=== PATIENT | female | born 1960 | race Caucasian/White ===

== ENCOUNTER 2022-12-03 07:17 | Day surgery (SDC) | payer OTHER ==
[2022-11-29 16:09] LABS: BASOPHILS # (AUTO) 0.1 X10'3 (0-0.2); BASOPHILS % (AUTO) 0.7 % (0-1); EOSINOPHILS # (AUTO) 0.1 X10'3 (0-0.9); EOSINOPHILS % (AUTO) 0.6 % (0-6); LYMPHOCYTES # (AUTO) 2.5 X10'3 (1.1-4.8); LYMPHOCYTES % (AUTO) 29.6 % (21-51); MEAN CORPUSCULAR HEMOGLOBIN 34.3 PG (27.0-31.0); MEAN CORPUSCULAR HGB CONC 33.7 g/dL (33.0-36.5); MEAN CORPUSCULAR VOLUME 101.6 FL (78-98); MEAN PLATELET VOLUME 7.7 FL (7.4-10.4); MONOCYTES # (AUTO) 0.6 X10'3 (0-0.9); MONOCYTES % (AUTO) 7.4 % (2-12); NEUTROPHILS # (AUTO) 5.3 X10'3 (1.8-7.7); NEUTROPHILS % (AUTO) 61.7 % (42-75); PRE OP HEMATOCRIT 42.7 % (35.0-45.0); PRE OP HEMOGLOBIN 14.4 g/dL (12.0-16.0); PRE OP PLATELET COUNT 305 X10'3 (140-440); RED BLOOD COUNT 4.21 X10'6 (4.20-5.60); RED CELL DISTRIBUTION WIDTH 14.4 % (11.5-14.5)
[2022-11-29 16:19] LABS: ALBUMIN 3.6 G/DL (3.4-5.0); ALBUMIN/GLOBULIN RATIO 0.9 (1.1-1.5); ALKALINE PHOSPHATASE 74 IU/L (46-116); BLOOD UREA NITROGEN 11 MG/DL (7-18); BUN/CREATININE RATIO 13.9 (6.6-38.0); CALCIUM 9.3 MG/DL (8.5-10.1); CHLORIDE 102 MMOL/L (99-107); CREATININE 0.79 MG/DL (0.40-0.90); PRE OP ALT 23 U/L (30-65); PRE OP ANION GAP 6 (8-16); PRE OP AST 21 U/L (10-37); PRE OP BILIRUB, TOTAL 0.3 MG/DL (0.0-1.0); PRE OP GLUCOSE 101 MG/DL (70-104); PRE OP POTASSIUM 4.3 MMOL/L (3.4-5.1); PRE OP SODIUM 136 MMOL/L (135-145); TOTAL CARBON DIOXIDE 28.5 MMOL/L (24-32); TOTAL PROTEIN 7.7 G/DL (6.4-8.2); eGFR 74 ML/MIN
[2022-12-03] VITALS (10 sets, daily range): BP systolic 125–149; BP diastolic 85–100
[~2022-12-03] VITALS: Ht 154.9 cm; Wt 61.7 kg
[~2022-12-03 07:17] MED LIST: AMLO10TA13 PO; ATEN25TA; BUPIVAcaine 0.5% inj/PF 30 ML ONE; DOCUMENT DATE & TIME OF BETA-BLOCKER PO ONE; HYDR-3972 PO; ceFAZolin inj. 2,000 MG in dextrose 5%-water 100 ML IV ONE; famotidine 20mg tablet PO ONE; ringers solution, lacted 1,000 ML IV SCH
[2022-12-03] MEDS ORDERED: LIDOcaine 1% 30ml preserv. free vial ONE ×2 (07:49→10:59)
[2022-12-03] MEDS ORDERED: proCHLORperazine 10 MG/2 ml inj IV PRN ×2 (09:45)
[2022-12-03] MEDS ORDERED: morphine 4 MG/ML inj SYRINge IV PRN ×2 (09:45)
[2022-12-03] MEDS ORDERED: ondansetron/PF 4mg/2ml inj IV PRN ×2 (09:45)
[2022-12-03] MEDS ORDERED: meperidine/PF 25mg/ml syringe IV PRN ×6 (09:45)
[2022-12-03] MEDS ORDERED: morphine 2 MG/ML inj. syringe IV PRN ×2 (09:45)
[2022-12-03] MEDS ORDERED: ringers solution, lacted 1,000 ML IV SCH ×2 (09:45)
[2022-12-03] MEDS ORDERED: fentaNYL/PF 50MCG/1 ML 2ML syringe ONE (10:09)
[2022-12-03] MEDS ORDERED: MIDAZolam 1 MG/ML 5ML VIAL ONE (10:10)
[2022-12-03] MEDS ORDERED: LIDOcaine 2% (20mg/ml) 5ml vial ONE (10:20)
[2022-12-03] MEDS ORDERED: ROPIVAcaine 0.5% (5mg/ml) 30ml vial ONE (10:42)
[2022-12-03] MEDS ORDERED: BUPIVAcaine 0.5% inj/PF 30 ML ONE (10:59)
--- NOTE | 2022-12-03 12:18 | NUR ---
Received from [facility] TO ROOM 5, accompanied by Anesthesiologist DR GUTIERREZ and report given by Anesthesiolgist. PT PRESERNT WITH 20G LEFT AC, RIGHT ELBOW/.HAND/WRIST DRERSSING CDI, LEFT WRIST DRESSNG CDI. VSS Addendum: 12/03/22 at 1316 by Rebekah Negron RN, RN Amended: Links added.
--- NOTE | 2022-12-03 13:28 | NUR ---
ALL DISCHARGE CRITERIA HAS BEEN MET. VSS, PAIN AT A TOLERABLE LEVEL, VOIDING AND ABLE TO SAFELY AMBULATE AND TRANSFER SELF. IV TAKEN OUT WITHOUT COMPLICATIONS. ALL DISCHARGE INSTRUCTIONS COVERED WITH PATIENT AND ALL QUESTIONS ANSWERED, COPY GIVEN TO PATIENT. PATIENT TAKEN OUT VIA WHEELCHAIR TO PERSONAL VEHICLE WHERE FAMILY/FRIEND DROVE PATIENT HOME. Addendum: 12/03/22 at 1337 by Rebekah Negron RN, RN Amended: Links added.
== END 2022-12-03 13:28 | disposition home or self-care (01) ==
LOC: PAS 07:17
PROVIDERS: ATTEND Orthopaedic Surgery Hand Surgery
DX: M19.031 Primary osteoarthritis, right wrist (principal); G56.01 Carpal tunnel syndrome, right upper limb; M65.322 Trigger finger, left index finger; I10 Essential (primary) hypertension; J44.9 Chronic obstructive pulmonary disease, unspecified; K21.9 Gastro-esophageal reflux disease without esophagitis; G89.18 Other acute postprocedural pain; Z79.899 Other long term (current) drug therapy; Z98.890 Other specified postprocedural states; Z98.51 Tubal ligation status; Z90.710 Acquired absence of both cervix and uterus; Z72.89 Other problems related to lifestyle; F17.210 Nicotine dependence, cigarettes, uncomplicated; Z87.442 Personal history of urinary calculi
CPT/HCPCS: 25820; 26055; 36415; 64417; 64721; 80053; 82948; 85025; 93005; C1713; J0690; J2250; J2795; J3010; J3490; J7030; J7060; J7120; S0020; Z7506; Z7508; Z7512; A4215; A4565; A4618; A6449; A7000

== ENCOUNTER → 2024-04-20 | Outpatient (CLI) | payer MEDICAID ==
[~2024-04-20] MED LIST changes: -BUPIVAcaine 0.5% inj/PF 30 ML ONE; -DOCUMENT DATE & TIME OF BETA-BLOCKER PO ONE; -ceFAZolin inj. 2,000 MG in dextrose 5%-water 100 ML IV ONE; -famotidine 20mg tablet PO ONE; -ringers solution, lacted 1,000 ML IV SCH
== END | disposition home or self-care (01) ==
LOC: VAS 14:40
PROVIDERS: ATTEND Family Medicine
DX: R20.2 Paresthesia of skin (principal)
CPT/HCPCS: 93880